=== PATIENT | female | born 1975 | race Caucasian/White ===

== ENCOUNTER → 2023-10-22 13:25 | Outpatient (CLI) | payer OTHER, MEDICAID, SELFPAY ==
[2023-10-22 19:35] LABS: Alanine Aminotransferase 63 IU/L (<35); Albumin 4.4 g/dL (3.5-5.0); Albumin Globulin Ratio 1.5 (1.0-2.8); Alkaline Phosphatase 78 U/L (38-126); BUN Creatinine Ratio 21.2 (6-22); Bilirubin Total 0.3 mg/dL (0.2-1.3); Blood Urea Nitrogen 14 mg/dL (7-17); Calcium 9.5 mg/dL (8.4-10.2); Carbon Dioxide 30 mmol/L (22-32); Chloride 99 mmol/L (98-107); Estimated Glomerular Filt Rate > 60 mL/min (>60); Glucose 90 mg/dL (70-100); HEMOLYSIS < 15 (0-50); Iron 47 ug/dL (37-170); Potassium 3.8 mmol/L (3.4-5.1); Sodium 138 mmol/L (137-145); Total Protein 7.4 g/dL (6.3-8.2); Uric Acid 2.7 mg/dL (2.5-6.2)
[2023-10-22 19:41] LABS: Rheumatoid Factor < 8.6 IU/mL (<12.0)
[2023-10-22 19:46] LABS: Percent Iron Saturation 16 % (15-50); Total Iron Binding Capacity 286 ug/dL (265-497); Transferrin 264 mg/dL (206-381)
[2023-10-22 21:06] LABS: Erythrocyte Sedimentation Rate 4 MM/HR (0-20); Hepatitis B Surface Antigen NEGATIVE s/c (NEGATIVE)
[2023-10-23 15:31] LABS: HEMOLYSIS < 15 (0-50)
[2023-10-23 15:34] LABS: Aspartate Aminotransferase 46 IU/L (14-36)
[2023-10-23 18:21] LABS: Hep C Virus Ab w/Reflex Quant NEGATIVE s/c (NEGATIVE)
[2023-10-24 02:39] LABS: Hepatitis B Core Antibody Negative (Negative)
[2023-10-24 18:34] LABS: Antiribosomal P Antibodies <0.2 AI (0.0-0.9); Free Kappa Lt Chains, Serum 22.8 mg/L (3.3-19.4); Free Lambda Lt Chains,Serum 16.5 mg/L (5.7-26.3)
[2023-10-27 05:54] LABS: Hepatitis B Surf Ab Qualitativ Reactive (.)
[2023-10-27 13:37] LABS: ANA Screen, IFA Negative (.)
[2023-10-27 16:36] LABS: Smooth Muscle Antibody 4 Units (0-19)
== END ==
PROVIDERS: PCP Family Medicine; Visit Provider Family Medicine
DX: R76.8 Other specified abnormal immunological findings in serum (principal); R74.01 Elevation of levels of liver transaminase levels; G62.9 Polyneuropathy, unspecified
CPT/HCPCS: 80053; 83516; 83540; 83550; 83883; 84550; 85651; 86038; 86430; 86704; 86706; 86803; 87340

== ENCOUNTER → 2024-01-11 08:44 | Outpatient (CLI) | payer OTHER, MEDICAID, SELFPAY ==
[2024-01-11 19:43] LABS: Appearance Urine UA CLEAR; Bilirubin Urine UA NEGATIVE (NEGATIVE); Color Urine UA YELLOW; Glucose Urine UA NEGATIVE (Negative); Ketones Urine UA NEGATIVE (NEGATIVE); Leukocyte Esterase Urine UA NEGATIVE (NEGATIVE); Nitrite Urine UA NEGATIVE (Negative); Occult Blood Urine UA NEGATIVE (Negative); Protein Urine UA NEGATIVE (Negative); Specific Gravity Urine UA <=1.005 (1.000-1.035); Urobilinogen Urine UA 0.2 E.U./dL (0.2)
[2024-01-11 20:02] LABS: pH Urine UA 6.5 (4.5-8.0)
[2024-01-11 20:03] LABS: Bacteria Urine None Seen; Culture Indicated Urine Cult Not Indicated; RBC Urine None Seen (0-5/HPF); Squamous Epithelial Cell Urine None Seen (0-5/HPF); Urine Volume 10mL (spun); WBC Urine None Seen (0-5/HPF)
== END ==
PROVIDERS: PCP Family Medicine; Visit Provider Physician Assistant
DX: J02.9 Acute pharyngitis, unspecified (principal); R21 Rash and other nonspecific skin eruption; R53.81 Other malaise
CPT/HCPCS: 81001; 81002; 87070

== ENCOUNTER → 2024-01-12 09:29 | Outpatient (CLI) | payer OTHER, MEDICAID, SELFPAY ==
[2024-01-12 19:51] LABS: Alanine Aminotransferase 38 IU/L (<35); Albumin 4.4 g/dL (3.5-5.0); Albumin Globulin Ratio 1.6 (1.0-2.8); Alkaline Phosphatase 75 U/L (38-126); Aspartate Aminotransferase 31 IU/L (14-36); BUN Creatinine Ratio 20.7 (6-22); Bilirubin Total 0.5 mg/dL (0.2-1.3); Blood Urea Nitrogen 12 mg/dL (7-17); C-Reactive Protein Quant < 0.5 mg/dL (<1.0); Calcium 9.6 mg/dL (8.4-10.2); Carbon Dioxide 29 mmol/L (22-32); Chloride 105 mmol/L (98-107); Estimated Glomerular Filt Rate > 60 mL/min (>60); Globulin 2.8 g/dL (1.7-4.1); Glucose 106 mg/dL (70-100); HEMOLYSIS 16 (0-50); Potassium 3.4 mmol/L (3.4-5.1); Sodium 140 mmol/L (137-145); Total Protein 7.2 g/dL (6.3-8.2)
[2024-01-12 19:52] LABS: Add Manual Diff / Slide Review NO; Basophils Absolute Auto 0 /uL (0-100); Basophils Percent Auto 0.6 % (0-2); Eosinophils Absolute Auto 0 /uL (0-450); Eosinophils Percent Auto 0.4 % (2-4); Hematocrit 43.5 % (36-46); Lymphocytes Absolute Auto 2700 /uL (1100-4500); Lymphocytes Percent Auto 35.1 % (25-40); Mean Corpuscular HGB Conc 34.5 % (30-36); Mean Corpuscular Hemoglobin 32.1 PG (26-34); Monocytes Absolute Auto 700 /uL (0-900); Monocytes Percent Auto 9.9 % (3-14); Neutrophils Absolute Auto 4100 /uL (1500-7000); Platelet Count 236 X10^3/uL (150-400); Red Blood Cell Count 4.68 X10^6/uL (4.0-5.2); Red Cell Distribution Width 12.8 % (11.6-14.8); White Blood Cell Count 7.6 X10^3/uL (4.5-11.0)
[2024-01-12 21:04] LABS: Erythrocyte Sedimentation Rate 1 MM/HR (0-20)
[2024-01-15 17:08] LABS: Antimyeloperoxidase Antibodies <0.2 units (0.0-0.9); Antiproteinase 3 Antibodies <0.2 units (0.0-0.9); Cytoplasmic C-ANCA <1:20 titer (Neg:<1:20); Perinuclear P-ANCA <1:20 titer (Neg:<1:20)
== END ==
PROVIDERS: PCP Family Medicine; Visit Provider Family Medicine
DX: D69.2 Other nonthrombocytopenic purpura (principal); L50.9 Urticaria, unspecified
CPT/HCPCS: 80053; 85025; 85651; 86140; 86256

== ENCOUNTER → 2024-01-18 11:09 | Outpatient (CLI) | payer OTHER, MEDICAID, SELFPAY ==
--- NOTE | 2024-01-18 11:10 | DI.US.S_ITS ---
PROCEDURE: US ABDOMEN LIMITED INDICATIONS: ELEVATED LIVER FUNCTION TESTS TECHNIQUE: Real-time focused scanning was performed of the abdomen, with image documentation. COMPARISON: Outside Facility, MR, MR LUMBAR SPINE WO CON, 04/09/2023, 7:59. FINDINGS: The liver is normal in size and demonstrates no suspicious lesions. There is a 6 x 6 x 7 mm hyperechoic nonshadowing nonvascular focus seen within the left liver. No findings of gallstones or sludge are seen. The gallbladder wall is not thickened, measuring 3 mm or less. No specific pericholecystic fluid is seen. The sonographic Lopez sign is negative. There is no biliary dilatation, the common bile duct measures 3 mm. No significant pancreatic abnormality is seen on these images. IMPRESSION: Normal appearing liver, with incidental note made of a 7 mm presumed benign hemangioma. The gallbladder demonstrates a normal sonographic appearance. No biliary dilatation is seen. Dictated by: Ronn Bennett M.D. on 01/18/2024 at 12:54 Approved by: Ronn Bennett M.D. on 01/18/2024 at 12:55
== END ==
PROVIDERS: PCP Family Medicine; Referring Provider Family Medicine; Visit Provider Family Medicine
DX: R74.01 Elevation of levels of liver transaminase levels (principal); D69.2 Other nonthrombocytopenic purpura; L50.9 Urticaria, unspecified; M54.41 Lumbago with sciatica, right side; M54.16 Radiculopathy, lumbar region; M79.18 Myalgia, other site; G89.29 Other chronic pain
CPT/HCPCS: 76705; 99214

== ENCOUNTER 2024-04-13 10:57 | Outpatient (CLI) | payer OTHER, MEDICAID, SELFPAY ==
[2024-04-13] VITALS (8 sets, daily range): BP systolic 98–124; BP diastolic 47–84; PULSE 51–59; RESP 16–25; TEMP 37; O2SAT 96–100
--- NOTE | 2024-04-13 11:21 | DI.RAD.S_ITS ---
PROCEDURE: PAIN PERIPHERAL NRV BLK OTHER INDICATIONS: neuralgia COMPARISON: None. FINDINGS/ IMPRESSION: Fluoroscopic spot filming was performed to verify placement of right superior cluneal nerves with contrast injection. Please see separately dictated procedure report for full details. Approved by: Qian Leija M.D.,Ph.D. on 04/14/2024 at 21:17
[2024-04-13] MEDS: MIDAZOLAM 2 MG/2 ML VIAL 1 MG IV (11:41)
[2024-04-13] MEDS: iopamidoL 15 ML VIAL 3 ML INJ (11:43)
[2024-04-13] MEDS: methylPREDNISolone acet DEPO 40 MG/ML VIAL INJ (11:44)
[2024-04-13] MEDS: BUPIVACAINE 0.25% (PF) VIAL 10 ML INJ (11:44)
--- NOTE | 2024-04-13 11:57 | P.PCN_ITS ---
Date/Time/Diagnoses Date of procedure: 04/13/24 Time of procedure: 11:30 Procedure Notes Physician: Rik Reno Total Fluoroscopy time (seconds): 12 Total sedation minutes: 9 Procedure in detail & Post-procedure care: Right Cluneal Nerve Injection Indications: Lianet is presenting for treatment of cluneal neuralgia with low back and buttock pain. Preoperative diagnosis: Right cluneal neuralgia Postoperative diagnosis: Same Focused Examination: Ax3 Mood and affect are normal Vital Signs: VSS ASA: 2 Consent: Following review of allergies and potential side effects/complications, including, but not necessarily limited to, infection, allergic reaction, local tissue breakdown, stroke, temporary or permanent nerve injury, paralysis, and possible , the patient indicated that they understood and agreed to proce ed.? An informed consent document was signed by the patient, witnessed by a nurse and placed in the patient's chart.? Additionally, other treatment options including medications and physical therapy were reviewed with the patient. All questions were answered. Site was then marked. Anesthesia: After review of previous anesthetic history and IV conscious sedation, the patient was deemed safe to proceed with today's procedure with IV conscious sedation. IV sedation was accomplished with midazolam 1 mg administered by the RN after order by Dr. Reno. Sedation was titrated to patient comfort during the course of the procedure. Patient remained responsive to all verbal commands. Position: Prone Monitoring: NIBP, Pulse oximetry, 3 lead EKG Needle used: 25 gauge, 3.5 inch spinal needle x3 Contrast: Isovue 300-M 3mL Injectate: Depomedrol 40mg with 8 mL 0.25% Bupivacaine - 3 mL per site Technique: The skin was prepped with chloraprep and then draped in a sterile fashion. Time out was performed as per protocol. Oxygen applied via NC. Midline of the spine was identified using fluoroscopy. The skin was measured 8 cm from midline and sterile ines placed on the skin delineating the superior aspect of the iliac crest on the right. Two allred were subsequently made 2 cm medial and 2 cm lateral for a total of 3 target sites. Skin and subcutaneous structures of the needle entry sites were then infiltrated with 5 mL of lidocaine 1%. Under AP and contralateral oblique control, the needle was guided to the superior aspect of the iliac crest in the 3 locations. Contrast was injected and the spread was consistent with appropriate needle location. There was no evidence for intravascular uptake. After negative aspiration, the above-mentioned injectate was then slowly administered and the needles withdrawn. The patient expressed no unusual discomfort or paresthesias during needle positioning or injection. Band- Aids applied to injection sites. EBL: less than 1 ml Complications: None Post Procedure: Patient was taken to the recovery and monitored. The patient was provided a Pain Log to continue to record the patient's response to the target- specific procedure prior to the patient's follow-up visit with the referring physician. Patient was stable upon discharge. Detailed post procedure instructions were provided. Patient was asked to call in the event of worsening pain, fever, weakness, numbness or bladder/bowel incontinence.
== END 2024-04-13 12:13 | disposition home or self-care (01) ==
LOC: RAD 10:58
PROVIDERS: PCP Family Medicine; Referring Provider Anesthesiology; Visit Provider Anesthesiology
DX: G58.8 Other specified mononeuropathies (principal)
CPT/HCPCS: 64450; J1010; J2250; J3490

== ENCOUNTER → 2024-11-25 11:53 | Outpatient (CLI) | payer OTHER, SELFPAY ==
[2024-11-25 18:52] LABS: Add Manual Diff / Slide Review NO; Basophils Absolute Auto 100 /uL (0-100); Basophils Percent Auto 0.9 % (0-2); Eosinophils Absolute Auto 0 /uL (0-450); Eosinophils Percent Auto 0.1 % (2-4); Hematocrit 44.5 % (36-46); Hemoglobin 15.3 g/dL (12.0-16.0); Lymphocytes Absolute Auto 1400 /uL (1100-4500); Lymphocytes Percent Auto 22.7 % (25-40); Mean Corpuscular HGB Conc 34.5 % (30-36); Mean Corpuscular Hemoglobin 31.6 PG (26-34); Mean Corpuscular Volume 91.7 fL (80-100); Monocytes Absolute Auto 400 /uL (0-900); Monocytes Percent Auto 5.9 % (3-14); Neutrophils Absolute Auto 4200 /uL (1500-7000); Neutrophils Percent Auto 70.4 % (50-75); Platelet Count 292 X10^3/uL (150-400); Red Blood Cell Count 4.86 X10^6/uL (4.0-5.2); Red Cell Distribution Width 12.5 % (11.6-14.8)
[2024-11-25 19:17] LABS: Alanine Aminotransferase 87 IU/L (<35); Albumin 4.9 g/dL (3.5-5.0); Albumin Globulin Ratio 1.8 (1.0-2.8); Alkaline Phosphatase 84 U/L (38-126); Aspartate Aminotransferase 75 IU/L (14-36); BUN Creatinine Ratio 15.9 (6-22); Bilirubin Total 0.5 mg/dL (0.2-1.3); Blood Urea Nitrogen 13 mg/dL (7-17); Calcium 9.7 mg/dL (8.4-10.2); Carbon Dioxide 26 mmol/L (22-32); Chloride 103 mmol/L (98-107); Estimated Glomerular Filt Rate > 60 mL/min (>60); Globulin 2.7 g/dL (1.7-4.1); Glucose 95 mg/dL (70-100); HEMOLYSIS 41 (0-50); Lipase 194 U/L (23-300); Sodium 140 mmol/L (137-145); Total Protein 7.6 g/dL (6.3-8.2)
== END ==
PROVIDERS: PCP Family Medicine; Visit Provider Family Medicine
DX: R10.9 Unspecified abdominal pain (principal)
CPT/HCPCS: 80053; 83690; 85025; 87086

== ENCOUNTER → 2025-02-15 12:18 | Outpatient (CLI) | payer OTHER, SELFPAY ==
[2025-02-15 19:09] LABS: Add Manual Diff / Slide Review NO; Basophils Absolute Auto 0 /uL (0-100); Basophils Percent Auto 0.6 % (0-2); Eosinophils Absolute Auto 0 /uL (0-450); Eosinophils Percent Auto 0.2 % (2-4); Hemoglobin 14.1 g/dL (12.0-16.0); Lymphocytes Absolute Auto 1200 /uL (1100-4500); Lymphocytes Percent Auto 21.4 % (25-40); Mean Corpuscular HGB Conc 34.4 % (30-36); Mean Corpuscular Hemoglobin 31.8 PG (26-34); Mean Corpuscular Volume 92.5 fL (80-100); Monocytes Absolute Auto 500 /uL (0-900); Monocytes Percent Auto 8.5 % (3-14); Neutrophils Absolute Auto 3800 /uL (1500-7000); Neutrophils Percent Auto 69.3 % (50-75); Platelet Count 191 X10^3/uL (150-400); Red Blood Cell Count 4.43 X10^6/uL (4.0-5.2); Red Cell Distribution Width 12.8 % (11.6-14.8); White Blood Cell Count 5.5 X10^3/uL (4.5-11.0)
== END ==
PROVIDERS: PCP Family Medicine; Visit Provider Physician Assistant Medical
DX: R11.0 Nausea (principal); R19.7 Diarrhea, unspecified
CPT/HCPCS: 85025

== ENCOUNTER → 2025-02-16 05:20 | Outpatient (CLI) | payer OTHER, SELFPAY ==
[2025-02-16 20:41] LABS: Adenovirus F 40/41 Not Detected (Not Detect); Astrovirus Not Detected (Not Detect); Campylobacter Detected (Not Detect); Clostridium difficile toxin AB Not Detected (Not Detect); Cryptosporidium Not Detected (Not Detect); Cyclospora cayetanensis Not Detected (Not Detect); Entamoeba histolytica Not Detected (Not Detect); Enteroaggregative E.coli Not Detected (Not Detect); Enteropathogenic E.coli Not Detected (Not Detect); Enterotoxigenic E.coli It/st Not Detected (Not Detect); Giardia lamblia Not Detected (Not Detect); Norovirus GI/GII Not Detected (Not Detect); Plesiomonsa shigelloides Not Detected (Not Detect); Rotavirus A Not Detected (Not Detect); Salmonella Not Detected (Not Detect); Sapovirus Not Detected (Not Detect); Shiga-like toxin-prod E.coli Not Detected (Not Detect); Shigella/Enteroinvasive E.coli Not Detected (Not Detect); Vibrio Not Detected (Not Detect); Vibrio cholerae Not Detected (Not Detect); Yersinia enterocolitica Not Detected (Not Detect)
== END ==
PROVIDERS: PCP Family Medicine; Visit Provider Physician Assistant Medical
DX: R19.7 Diarrhea, unspecified (principal); R11.0 Nausea
CPT/HCPCS: 87507

== ENCOUNTER → 2025-07-24 12:49 | Outpatient (CLI) | payer OTHER, SELFPAY ==
--- NOTE | 2025-07-24 12:53 | DI.RAD.S_ITS ---
PROCEDURE: XR LUMBAR SPINE MIN 4V INDICATIONS: BACK PAIN TECHNIQUE: 5 views of the lumbar spine were acquired, including bilateral oblique views. COMPARISON: None. FINDINGS: Bones: 5 nonrib-bearing vertebrae are present. There is normal bony alignment. No vertebral body compression fractures. No suspicious bony lesions. Soft tissues: Overlying bowel gas pattern is normal. No suspicious soft tissue calcifications. Oblique images: No pars defects. IMPRESSION: No acute vertebral body compression fracture or spondylolisthesis. No pars defects. No significant spondylitic changes. Dictated by: Graeme Golden M.D. on 07/24/2025 at 13:35 Approved by: Graeme Golden M.D. on 07/24/2025 at 13:36
== END ==
PROVIDERS: PCP Family Medicine; Referring Provider Physical Medicine & Rehabilitation; Visit Provider Physical Medicine & Rehabilitation
DX: M54.9 Dorsalgia, unspecified (principal); M53.3 Sacrococcygeal disorders, not elsewhere classified; M47.816 Spondylosis without myelopathy or radiculopathy, lumbar region; M47.817 Spondylosis without myelopathy or radiculopathy, lumbosacral region; Z87.828 Personal history of other (healed) physical injury and trauma
CPT/HCPCS: 72110; 99214

== ENCOUNTER → 2025-10-03 08:14 | Outpatient (CLI) | payer OTHER, SELFPAY ==
[2025-10-03 18:40] LABS: Hematocrit 41.4 % (36-46); Hemoglobin 14.2 g/dL (12.0-16.0); Mean Corpuscular HGB Conc 34.2 % (30-36); Mean Corpuscular Hemoglobin 31.4 PG (26-34); Mean Corpuscular Volume 91.7 fL (80-100); Platelet Count 192 X10^3/uL (150-400)
[2025-10-03 18:54] LABS: Alanine Aminotransferase 25 IU/L (<35); Albumin 5.0 g/dL (3.5-5.0); Albumin Globulin Ratio 2.0 (1.0-2.8); Alkaline Phosphatase 75 U/L (38-126); Blood Urea Nitrogen 15 mg/dL (7-17); Calcium 9.7 mg/dL (8.4-10.2); Carbon Dioxide 24 mmol/L (22-32); Chloride 105 mmol/L (98-107); Cholesterol 218 mg/dL (140-199); Estimated Glomerular Filt Rate > 60 mL/min (>60); Globulin 2.5 g/dL (1.7-4.1); Glucose 97 mg/dL (70-99); HDL Cholesterol 105 mg/dL (40-60); HEMOLYSIS 34 (0-50); Potassium 4.0 mmol/L (3.4-5.1); Sodium 139 mmol/L (137-145); Total Protein 7.5 g/dL (6.3-8.2); Triglycerides 54 mg/dL (35-150)
[2025-10-03 19:24] LABS: Thyroid Stimulating Hormone 1.30 uIU/mL (0.47-4.68)
== END ==
PROVIDERS: PCP Family Medicine; Referring Provider Family Medicine; Visit Provider Family Medicine
DX: Z13.6 Encounter for screening for cardiovascular disorders (principal); R74.01 Elevation of levels of liver transaminase levels; R53.83 Other fatigue; F41.9 Anxiety disorder, unspecified
CPT/HCPCS: 80053; 80061; 84443; 85027